=== PATIENT | male | born 1995 | race Caucasian/White ===

== ENCOUNTER 2023-03-10 18:11 | Emergency (ER) | payer OTHER, SELFPAY ==
[2023-03-10 18:13] VITALS: BP 120/70; PULSE 103; RESP 20; TEMP 36.8; O2SAT 97; BMI 25.8
--- NOTE | 2023-03-10 18:34 | EXP.UTC ---
Discharge Plan Disposition Patient Disposition: Home, Self-Care Condition: Good Prescriptions Prescriptions: New cephalexin 500 mg capsule 500 mg PO QID Qty: 40 0RF mupirocin 2 % ointment 1 applic topical TID 7 Days Qty: 15 0RF ibuprofen [IBU] 800 mg tablet 800 mg PO Q8HP PRN (Reason: Moderate Pain) Qty: 30 0RF Referrals Follow up/Referrals: Ezequiel Cox [Primary Care Provider] - See instructions Activity Restrictions/Add. Instructions Additional Instructions/Restrictions: Keep the wound clean and dry. Take ibuprofen for pain. I sent in a prescription to your pharmacy. Keep a dressing on it if you are going to be getting it dirty. Watch the wound for signs of infection, such as redness, swelling, drainage, fever. etc. Take tylenol or ibuprofen for pain. Follow up with your regular doctor. GO TO THE ER FOR ANY WORSENING SYMPTOMS OR CONCERNS. Clinical Impressions Clinical Impression: Puncture wound of foot, right Instructions Patient Instructions: DI for Puncture Wound, Tetanus, Diphtheria, and Pertussis Vaccine Discharge ED Provider: Tato Crowley [facility] [place] General Stated complaint: AO 03/10 13:00, nail went in right foot Mode of Arrival: Wheelchair Source of Information: Patient Limitations: No Limitations Time Seen by Provider: 03/10/23 18:34 Description of Symptoms (Recalled from Triage Doc. by RN): Patient reports stepping on a nail and needs a tetanus shot. HEENT Symptoms (Recalled from RN notes): No Resp Symptoms (Recalled from RN notes): No Skin Symptoms (Recalled from RN notes): Yes MS Symptoms (Recalled from RN notes): No Functional Status (Recalled from RN notes): wnl History of Present Illness Provider Complaint: He reports that he stepped on a nail today at about 1300 while working on his barn. He has one puncture wound on the bottom of his right foot. He is NOT a diabetic. He denies the possibility that the nail may have broke off in his foot. He refuses an x-ray of his foot. Related Data Previous Rx's Medication Instructions Recorded cephalexin 500 mg capsule 500 mg PO QID #40 caps 03/10/23 ibuprofen 800 mg tablet (IBU) 800 mg PO Q8HP PRN Moderate Pain 03/10/23 #30 tabs mupirocin 2 % topical ointment 1 applic topical TID 7 days #15 03/10/23 grams Allergies Allergy/AdvReac Type Severity Reaction Status Date / Time No Known Allergies Allergy Verified 03/10/23 18:33 Worker's Comp Is this a Worker's Comp case?: No [facility] Disclaimer: The information contained in this section may have been updated after the patient was seen, as this information can be updated by other users. Social History Smoking Status: Former smoker alcohol intake: former current occupational status: employed Travel in the last 8 weeks: None ROS Obtained: Yes All systems reviewed & no additional complaints except as documented Constitutional Constitutional: Denies chills and Denies fever(s) Eyes Eyes: Denies eye discharge ENT Ears, Nose, Mouth, and Throat: Denies dizziness, Denies otalgia and Denies sore throat Cardiovascular Cardiovascular: Denies chest pain Respiratory Respiratory: Denies shortness of breath, Denies chest congestion, Denies cough, Denies stridor and Denies wheezing Gastrointestinal Gastrointestingal: Denies nausea or vomiting Musculoskeletal Musculoskeletal: Reports system reviewed and no additional complaints, except as documented and Denies arthralgias Integumentary/Breasts Skin/Breast: Reports as per HPI Neurologic Neurologic: Denies dizziness and Denies paresthesias Allergic/Immunologic Allergic/Immunologic: Denies wheezing Physical Exam General General appearance: alert and in no apparent distress Head Head exam: atraumatic, normocephalic and normal inspection Eye Eye exam: Present normal appearance, PERRL and EOMI ENT ENT exam: Present normal exam, normal oropharynx, mucous m
[2023-03-10 19:12] VITALS: BP 120/70; PULSE 103; RESP 20; TEMP 36.8; O2SAT 97
== END 2023-03-10 19:13 | disposition home or self-care (01) ==
PROVIDERS: Emergency Provider Nurse Practitioner Family; PCP Pediatrics
DX: S91.331A Puncture wound without foreign body, right foot, initial encounter (principal); Z87.891 Personal history of nicotine dependence; Z23 Encounter for immunization; W45.0XXA Nail entering through skin, initial encounter
CPT/HCPCS: 90471; 90715; 96372; 99204; 99212; G0463